=== PATIENT | male | born 1940 | race Caucasian/White ===

== ENCOUNTER → 2021-11-17 | Outpatient (CLI) | payer OTHER ==
--- NOTE | 2021-11-17 15:19 | KCIC ---
EXAM: Chest, 2 views. HISTORY: Cough. COMPARISON: None. FINDINGS: 2 views of the chest are obtained. There is mild elevation of the right hemidiaphragm with right infrahilar compressive atelectasis or infiltrate. There is no pleural fusion or pneumothorax. T he heart is normal in size. IMPRESSION: Mild elevation of the right hemidiaphragm with right infrahilar compressive atelectasis o r infiltrate. Electronically signed by: Sobeida Leon MD (11/17/2021 3:17 PM) [id number]
== END ==
LOC: KCIC 14:18
PROVIDERS: ATTEND Family Medicine
DX: J98.11 Atelectasis (principal); J98.6 Disorders of diaphragm; R05.9 Cough, unspecified; Z68.36 Body mass index [BMI] 36.0-36.9, adult
CPT/HCPCS: 71046